=== PATIENT | female | born 1945 | race Caucasian/White ===

== ENCOUNTER 2017-05-18 14:33 | Emergency (ER) | payer MEDICARE, BC ==
[~2017-05-18] VITALS: Ht 162.6 cm; Wt 106.8 kg
[~2017-05-18 14:33] MED LIST: ABUTEROL INH; ADVAIR DISK2 IN; ALEGRA PO; ALENDRONATE70 MG PO; CALCIUM600 M1 PO; GLIPIZIDE10 M2 PO; HYDROXYZ HCL25 MG PO; JANUMET XR1 TA1; JANUMET XR1 TA1 PO; JANUMET1 TAB PO; LIPITOR10 MG PO; MOVE FREE; MULTI 501; ONE TOUCH ULTRA 100; PREDNISONE10 MG PO; SINGULAIR PO; SOLU-MEDROL125 MG IM; TRIAMCINOLON0.11 EX; ZANTAC150 M1 PO; ZOFRAN4 MG/TAB PO
[2017-05-18 15:35] LABS: HEMATOCRIT 43.3 % (37.0-47.0); HEMOGLOBIN 14.3 g/dl (12.0-16.0); IMMATURE GRANULOCYTES 0.1 % (0.0-1.0); MEAN CELL VOLUME 89.3 fL CALC (80.0-100.0); MEAN CORPUSCULAR HGB 29.5 pG CALC (26.0-32.0); NEUT# 4.2 thou/uL (2.00-7.15); RED BLOOD COUNT 4.85 mill/uL (4.20-5.60); RED CELL DISTRI WIDTH 13.6 % (11.5-15.5)
[2017-05-18 15:42] LABS: ALBUMIN 4.1 g/dL (3.2-5.0); ALKALINE PHOSPHATASE 99 u/l (38-126); ANION GAP 17 (6-22 (CALC)); BILIRUBIN, TOTAL 0.6 mg/dL (0.0-1.4); BUN 18 mg/dL (8-23); BUN/CREATININE RATIO 21 (12-20 (CALC)); CALCIUM 9.8 mg/dL (8.4-10.2); CARBON DIOXIDE 27 mmol/l (22-30); CHLORIDE 102 mmol/l (95-108); CREATININE 0.9 mg/dL (0.5-1.0); GFR > 60 ML/MIN (>=60 (CALC)); GFR FOR AFR.AMER. > 60 ML/MIN (>=60 (CALC)); GLUCOSE 152 mg/dL (82-115); POTASSIUM 4.8 mmol/l (3.5-5.1); SGOT/AST 28 u/l (9-36); SGPT/ALT 49 u/l (11-66); SODIUM 141 mmol/l (137-146); TOTAL PROTEIN 7.3 g/dL (6.3-8.2)
[2017-05-18 15:54] LABS: MYOGLOBIN 29 ng/mL (0 - 62)
[2017-05-18] MEDS ORDERED: ZITHROMAX250 MG PO (16:13)
[2017-05-18] MEDS ORDERED: MEDDOSEPAK PO (16:13)
[2017-05-18] MEDS ORDERED: ALBUTEROL SUL0.083 % IN (16:13)
[2017-05-18] MEDS ORDERED: LOSARTAN POTASS50 MG PO (16:19)
[2017-05-18] MEDS ORDERED: ASPIRIN81 MG PO (16:20)
[2017-05-18] MEDS ORDERED: B-6100 MG PO (16:20)
[2017-05-18] MEDS ORDERED: CLARITIN-D1 TA2 PO (16:21)
[2017-05-18] MEDS ORDERED: COQ10200 MG PO (16:22)
[2017-05-18] MEDS ORDERED: MULTI VIT PO (16:22)
[2017-05-18 16:30] VITALS: BP 148/66
== END 2017-05-18 16:30 | disposition home or self-care (01) ==
LOC: ED 14:33
PROVIDERS: Emergency Medicine
DX: J45.901 Unspecified asthma with (acute) exacerbation (principal); I10 Essential (primary) hypertension; E11.9 Type 2 diabetes mellitus without complications; R06.02 Shortness of breath

== ENCOUNTER 2018-04-11 19:06 | Emergency (ER) | payer MEDICARE, BC ==
[~2018-04-11] VITALS: Ht 162.6 cm; Wt 122.0 kg
[~2018-04-11 19:06] MED LIST changes: +ALBUTEROL SUL0.083 % IN; +ASPIRIN81 MG PO; +B-6100 MG PO; +CLARITIN-D1 TA2 PO; +COQ10200 MG PO; +LOSARTAN POTASS50 MG PO; +MEDDOSEPAK PO; +MULTI VIT PO; +ZITHROMAX250 MG PO
[2018-04-11 20:40] VITALS: BP 135/60
== END 2018-04-11 20:40 | disposition home or self-care (01) ==
LOC: ED 19:06
DX: S93.401A Sprain of unspecified ligament of right ankle, initial encounter (principal); S93.601A Unspecified sprain of right foot, initial encounter; E11.9 Type 2 diabetes mellitus without complications; J45.909 Unspecified asthma, uncomplicated; W18.2XXA Fall in (into) shower or empty bathtub, initial encounter; Y93.E1 Activity, personal bathing and showering; Y92.002 Bathroom of unspecified non-institutional (private) residence as the place of occurrence of the external cause

== ENCOUNTER 2018-09-18 08:28 | Outpatient (RCR) | payer MEDICARE, BC ==
[~2018-09-18 08:28] MED LIST changes: +LANTUS100 UNIT/M
[2018-10-07] MEDS ORDERED: CLOPIDOGREL75 MG PO (16:36)
== END 2018-09-18 09:35 | disposition still patient (30) ==
LOC: CR 08:28
PROVIDERS: ATTEND Internal Medicine
DX: I25.119 Atherosclerotic heart disease of native coronary artery with unspecified angina pectoris (principal); Z95.818 Presence of other cardiac implants and grafts

== ENCOUNTER 2020-02-02 09:27 | Observation (INO) | payer MEDICARE, BC ==
[~2020-02-02] VITALS: Ht 162.6 cm; Wt 121.0 kg
[~2020-02-02 09:27] MED LIST changes: +CLOPIDOGREL75 MG PO
[2020-02-02 10:18] LABS: HEMATOCRIT 45.1 % (37.0-47.0); HEMOGLOBIN 14.7 g/dl (12.0-16.0); IMMATURE GRANULOCYTES 0.1 % (0.0-5.0); MEAN CELL VOLUME 90.9 fL CALC (80.0-100.0); MEAN CORPUSCULAR HGB 29.6 pG CALC (26.0-32.0); MEAN CORPUSCULAR HGB CONC 32.6 g/dL CAL (32.0-36.0); NEUT# 3.52 thou/uL (2.00-7.15); RED BLOOD COUNT 4.96 mill/uL (4.20-5.60); RED CELL DISTRI WIDTH 12.7 % (11.5-15.5)
[2020-02-02 10:27] LABS: ALBUMIN 4.2 g/dL (3.2-5.0); ALKALINE PHOSPHATASE 107 u/l (38-126); ANION GAP 11 (6-22 (CALC)); BILIRUBIN, TOTAL 0.7 mg/dL (0.0-1.4); BUN 17 mg/dL (8-23); BUN/CREATININE RATIO 21 (12-20 (CALC)); CARBON DIOXIDE 27 mmol/l (22-30); CHLORIDE 101 mmol/l (95-108); CREATININE 0.8 mg/dL (0.5-1.0); GFR > 60 ML/MIN (>=60 (CALC)); GFR FOR AFR.AMER. > 60 ML/MIN (>=60 (CALC)); POTASSIUM 4.1 mmol/l (3.5-5.1); SGOT/AST 36 u/l (9-36); SODIUM 134 mmol/l (137-146)
[2020-02-02] MEDS ORDERED: ALENDRONATE SOD70 MG PO (10:50)
[2020-02-02] MEDS ORDERED: OZEMPIC SC (10:53)
[2020-02-02] MEDS ORDERED: MOVE FREE JOINT1 TAB (10:54)
[2020-02-02] MEDS ORDERED: B121000 MCG PO (10:54)
[2020-02-02 11:05] LABS: PROTHROMBIN TIME 10.1 SECONDS (9.0-12.5)
[2020-02-02 12:15] LABS: URINE BILIRUBIN - DIPSTICK NEGATIVE (NEGATIVE); URINE BLOOD DIPSTICK TRACE-INTACT (NEGATIVE); URINE COLOR YELLOW; URINE GLUCOSE - DIPSTICK >=1000 mg/dL (NEGATIVE); URINE KETONE NEGATIVE (NEGATIVE); URINE LEUK ESTERASE NEGATIVE (NEGATIVE); URINE NITRITE - DIPSTICK NEGATIVE (Negative); URINE PROTEIN - DIPSTICK NEGATIVE (NEG-TRACE); URINE UROBILINOGEN - DIPSTICK 0.2 E.U./dL (0.2)
[2020-02-02 15:00] VITALS: BP 149/69
[2020-02-02 19:12] VITALS: BP 149/89
[2020-02-03 03:45] VITALS: BP 159/71
[2020-02-03 05:01] LABS: HEMATOCRIT 43.5 % (37.0-47.0); IMMATURE GRANULOCYTES 0.3 % (0.0-5.0); MEAN CELL VOLUME 91.2 fL CALC (80.0-100.0); MEAN CORPUSCULAR HGB 29.4 pG CALC (26.0-32.0); MEAN CORPUSCULAR HGB CONC 32.2 g/dL CAL (32.0-36.0); NEUT# 3.77 thou/uL (2.00-7.15); RED BLOOD COUNT 4.77 mill/uL (4.20-5.60); RED CELL DISTRI WIDTH 12.5 % (11.5-15.5)
[2020-02-03 05:25] LABS: ALBUMIN 3.9 g/dL (3.2-5.0); ALKALINE PHOSPHATASE 85 u/l (38-126); ANION GAP 10 (6-22 (CALC)); BILIRUBIN, TOTAL 0.6 mg/dL (0.0-1.4); BUN 18 mg/dL (8-23); BUN/CREATININE RATIO 19 (12-20 (CALC)); CARBON DIOXIDE 26 mmol/l (22-30); CHLORIDE 101 mmol/l (95-108); CREATININE 0.9 mg/dL (0.5-1.0); GFR > 60 ML/MIN (>=60 (CALC)); GFR FOR AFR.AMER. > 60 ML/MIN (>=60 (CALC)); SGOT/AST 25 u/l (9-36); SODIUM 134 mmol/l (137-146); TOTAL PROTEIN 6.3 g/dL (6.3-8.2)
[2020-02-03 07:59] VITALS: BP 116/63
[2020-02-03 10:15] LABS: CHOLESTEROL HDL RATIO 4.2 (<4.4 (CALC))
[2020-02-03 15:00] VITALS: BP 139/86
[2020-02-03 19:40] VITALS: BP 152/69
[2020-02-03 22:02] VITALS: BP 146/82
[2020-02-04 03:45] VITALS: BP 127/64
[2020-02-04 08:01] VITALS: BP 150/55
[2020-02-04 08:10] VITALS: BP 150/55
== END 2020-02-04 12:20 | disposition home or self-care (01) ==
LOC: ED 09:27 → ED-I 11:20 → ED 12:17 → MS2 12:18
PROVIDERS: Nurse Practitioner Family; Student in an Organized Health Care Education/Training Program; ADMIT Internal Medicine; ATTEND Internal Medicine
DX: I63.89 Other cerebral infarction (principal); R47.81 Slurred speech; R29.700 NIHSS score 0; I10 Essential (primary) hypertension; E11.9 Type 2 diabetes mellitus without complications; E78.5 Hyperlipidemia, unspecified; J45.909 Unspecified asthma, uncomplicated; I25.10 Atherosclerotic heart disease of native coronary artery without angina pectoris; Z79.4 Long term (current) use of insulin; Z79.02 Long term (current) use of antithrombotics/antiplatelets; Z79.82 Long term (current) use of aspirin; Z20.828 Contact with and (suspected) exposure to other viral communicable diseases
CPT/HCPCS: A9579; G0378

== ENCOUNTER 2020-02-21 18:24 | Emergency (ER) | payer MEDICARE, BC ==
[~2020-02-21] VITALS: Ht 162.6 cm; Wt 108.0 kg
[~2020-02-21 18:24] MED LIST changes: +ALENDRONATE SOD70 MG PO; +B121000 MCG PO; +MOVE FREE JOINT1 TAB; +OZEMPIC SC
[2020-02-21 19:31] VITALS: BP 136/53
[2020-02-21] MEDS ORDERED: TRAMADOL HCL50 MG PO (20:01)
[2020-02-21] MEDS ORDERED: VOLTAREN - GENE75 MG PO (20:01)
== END 2020-02-21 20:45 | disposition home or self-care (01) ==
LOC: ED 18:24
PROC: 2W3RX1Z Immobilization of Left Lower Leg using Splint (ICD-10-PCS; principal; 2020-02-21)
DX: S82.55XA Nondisplaced fracture of medial malleolus of left tibia, initial encounter for closed fracture (principal); S80.11XA Contusion of right lower leg, initial encounter; E11.9 Type 2 diabetes mellitus without complications; V86.19XA Passenger of other special all-terrain or other off-road motor vehicle injured in traffic accident, initial encounter; Z79.4 Long term (current) use of insulin

== ENCOUNTER 2020-02-25 09:09 | Emergency (ER) | payer MEDICARE, BC ==
[~2020-02-25] VITALS: Ht 162.6 cm; Wt 108.0 kg
[~2020-02-25 09:09] MED LIST changes: +TRAMADOL HCL50 MG PO; +VOLTAREN - GENE75 MG PO
[2020-02-25 10:33] LABS: PROTHROMBIN TIME 10.2 SECONDS (9.0-12.5)
[2020-02-25 10:39] LABS: ALBUMIN 4.2 g/dL (3.2-5.0); ALKALINE PHOSPHATASE 76 u/l (38-126); ANION GAP 12 (6-22 (CALC)); BILIRUBIN, TOTAL 0.8 mg/dL (0.0-1.4); BUN 30 mg/dL (8-23); BUN/CREATININE RATIO 28 (12-20 (CALC)); CARBON DIOXIDE 29 mmol/l (22-30); CHLORIDE 96 mmol/l (95-108); CREATININE 1.1 mg/dL (0.5-1.0); GFR 48 ML/MIN (>=60 (CALC)); GFR FOR AFR.AMER. 59 ML/MIN (>=60 (CALC)); LIPASE 32 u/l (23-300); POTASSIUM 4.2 mmol/l (3.5-5.1); SGOT/AST 36 u/l (9-36); SODIUM 133 mmol/l (137-146); TOTAL PROTEIN 7.4 g/dL (6.3-8.2)
[2020-02-25 10:44] LABS: HEMATOCRIT 42.7 % (37.0-47.0); HEMOGLOBIN 13.8 g/dl (12.0-16.0); IMMATURE GRANULOCYTES 0.2 % (0.0-5.0); MEAN CELL VOLUME 90.9 fL CALC (80.0-100.0); MEAN CORPUSCULAR HGB 29.4 pG CALC (26.0-32.0); MEAN CORPUSCULAR HGB CONC 32.3 g/dL CAL (32.0-36.0); NEUT# 6.24 thou/uL (2.00-7.15); RED BLOOD COUNT 4.7 mill/uL (4.20-5.60); RED CELL DISTRI WIDTH 12.5 % (11.5-15.5)
[2020-02-25 10:49] LABS: URINE BILIRUBIN - DIPSTICK NEGATIVE (NEGATIVE); URINE BLOOD DIPSTICK TRACE-INTACT (NEGATIVE); URINE COLOR YELLOW; URINE GLUCOSE - DIPSTICK NEGATIVE (NEGATIVE); URINE KETONE 15 mg/dL (NEGATIVE); URINE LEUK ESTERASE NEGATIVE (NEGATIVE); URINE NITRITE - DIPSTICK NEGATIVE (Negative); URINE PROTEIN - DIPSTICK NEGATIVE (NEG-TRACE); URINE SPECIFIC GRAVITY >=1.030; URINE UROBILINOGEN - DIPSTICK 0.2 E.U./dL (0.2)
[2020-02-25] MEDS ORDERED: ZOFRAN4 MG/TAB PO (11:27)
[2020-02-25 12:20] VITALS: BP 142/65
== END 2020-02-25 12:20 | disposition home or self-care (01) ==
LOC: ED 09:09
PROVIDERS: Student in an Organized Health Care Education/Training Program
DX: K29.70 Gastritis, unspecified, without bleeding (principal); N17.9 Acute kidney failure, unspecified; E86.0 Dehydration; E11.9 Type 2 diabetes mellitus without complications; S82.892D Other fracture of left lower leg, subsequent encounter for closed fracture with routine healing; X58.XXXD Exposure to other specified factors, subsequent encounter; Z86.73 Personal history of transient ischemic attack (TIA), and cerebral infarction without residual deficits; Z79.4 Long term (current) use of insulin

== ENCOUNTER 2022-11-21 18:18 | Observation (INO) | payer MEDICARE ==
[~2022-11-21] VITALS: Ht 162.6 cm; Wt 100.0 kg
[2022-11-21] VITALS (11 sets, daily range): BP systolic 111–145; BP diastolic 66–97
--- NOTE | 2022-11-21 19:01 | NUR ---
PT TRANSFERRED WITH W/C. PIVOTED TO STRETCHER/
[2022-11-21 19:07] LABS: BASO% 0.6 % (0-3); EOS% 2.2 % (0-8); HEMATOCRIT 44.6 % (37.0-47.0); HEMOGLOBIN 14.4 g/dl (12.0-16.0); IMMATURE GRANULOCYTES 0.1 % (0.0-5.0); LYMPH% 25.8 % (15-41); MEAN CELL VOLUME 90.8 fL CALC (80.0-100.0); MEAN CORPUSCULAR HGB 29.3 pG CALC (26.0-32.0); MEAN CORPUSCULAR HGB CONC 32.3 g/dL CAL (32.0-36.0); MONO% 7.6 % (2-13); NEUT# 4.58 thou/uL (2.00-7.15); NEUT% 63.7 % (42-76); RED BLOOD COUNT 4.91 mill/uL (4.20-5.60); RED CELL DISTRI WIDTH 12.6 % (11.5-15.5)
[2022-11-21 19:23] LABS: ALKALINE PHOSPHATASE 81 u/l (38-126); BILIRUBIN, TOTAL 0.6 mg/dL (0.02-1.3); BUN 13 mg/dL (8-23); BUN/CREATININE RATIO 14 (12-20 (CALC)); CHLORIDE 101 mmol/l (95-108); GFR FOR AFR.AMER. > 60 ML/MIN (>=60 (CALC)); GFR OTHER RACES 54 ML/MIN (>=60 (CALC)); POTASSIUM 4.2 mmol/l (3.5-5.1); PROTHROMBIN TIME 10.4 SECONDS (9.0-12.5); SGOT/AST 42 u/l (9-36); SODIUM 134 mmol/l (137-146); TOTAL PROTEIN 7.1 g/dL (6.3-8.2)
[2022-11-21 19:28] LABS: ANION GAP 12 (6-22 (CALC)); CARBON DIOXIDE 25 mmol/l (22-30)
--- NOTE | 2022-11-21 23:30 | NUR ---
RECEIVED REPORT OVER THE PHONE FROM ER NURSE. PT BROUGHT UP FROM ER VIA STR @[id number]. PT WAS ABLE TO AMBULATE FROM STR INTO BATHROOM, VOIDED WITH NO COMPLICATIONS AND THEN AMBULATED INTO BED. GAIT STEADY. PT IS A/OX3, ON ROOM AIR, DENIES ANY PAIN AT THIS TIME. SKIN IS INTACT. IV SITE APPEARS HEALTHY. ASSESSMENT COMPLETED. EDUCATED PT ON PLAN OF CARE FOR TONIGHT. CALL LIGHT WITHIN REACH AND SAFETY PRECAUTIONS IN PLACE.
--- NOTE | 2022-11-22 00:32 | NUR ---
AMMENDMENT: ADMISSIONS ASSESSMENT+NURSING INTERVENTIONS SHOWS OCCURED @1999 ON 11/21/22 CORRECTION: ADMISSIONS ASSESSMENT+NURSING INTERVENTIONS OCCURRED @[id number]
--- NOTE | 2022-11-22 04:00 | NUR ---
ASSISTED PT WITH AMBUILATING TO RESTROOM WITH IV POLE. PT ABLE TO VOID WITH NO COMPLICATIONS. AMBULATED BACK INTO BED. DENIES ANY PAIN AT THIS TIME. PT IS A/OX3. CALL LIGHT WITHIN REACH AND SAFETY PRECAUTIONS IN PLACE.
[2022-11-22 04:41] VITALS: BP 128/68
[2022-11-22 05:02] LABS: BASO% 0.6 % (0-3); EOS% 3.8 % (0-8); HEMATOCRIT 42.6 % (37.0-47.0); IMMATURE GRANULOCYTES 0.2 % (0.0-5.0); LYMPH% 32.3 % (15-41); MEAN CORPUSCULAR HGB 29.9 pG CALC (26.0-32.0); MEAN CORPUSCULAR HGB CONC 32.9 g/dL CAL (32.0-36.0); MONO% 8.2 % (2-13); NEUT# 3.49 thou/uL (2.00-7.15); NEUT% 54.9 % (42-76); RED BLOOD COUNT 4.68 mill/uL (4.20-5.60); RED CELL DISTRI WIDTH 12.8 % (11.5-15.5)
[2022-11-22 05:13] LABS: ALBUMIN 3.6 g/dL (3.2-5.0); ALKALINE PHOSPHATASE 69 u/l (38-126); ANION GAP 10 (6-22 (CALC)); BILIRUBIN, TOTAL 0.4 mg/dL (0.02-1.3); BUN 13 mg/dL (8-23); BUN/CREATININE RATIO 14 (12-20 (CALC)); CARBON DIOXIDE 25 mmol/l (22-30); CHLORIDE 104 mmol/l (95-108); CREATININE 0.9 mg/dL (0.5-1.0); GFR FOR AFR.AMER. > 60 ML/MIN (>=60 (CALC)); GFR OTHER RACES > 60 ML/MIN (>=60 (CALC)); SGOT/AST 37 u/l (9-36); SODIUM 136 mmol/l (137-146); TOTAL PROTEIN 6.4 g/dL (6.3-8.2)
[2022-11-22 06:50] VITALS: BP 140/69
--- NOTE | 2022-11-22 08:00 | NUR ---
PT ALERT AND ORIENTED X3.ABLE TO MAKE NEEDS KNOWN.RESPIRATIONS EVEN,UNLABORED.NO C/O PAIN.22G LEFT HAND REMOVED PER PROCESS STRIP[employer].DAUGHTER AT BEDSIDE.MED REC COMPLETED AND MD MADE AWARE.SAFETY PRECAUTIONS IN PLACE.CALL LIGHT WITHIN REACH.
[2022-11-22] MEDS ORDERED: TRESIBA FL100 UNIT/M SC (09:36)
--- NOTE | 2022-11-22 09:57 | NUR ---
PT DAUGHTER STATES THAT PT IS VERY ANXIOUS ABOUT HAVING AN MRI.
[2022-11-22 10:00] LABS: URINE BLOOD DIPSTICK TRACE-INTACT (NEGATIVE); URINE COLOR YELLOW; URINE GLUCOSE - DIPSTICK NEGATIVE (NEGATIVE); URINE KETONE NEGATIVE (NEGATIVE); URINE LEUK ESTERASE NEGATIVE (NEGATIVE); URINE PH 6.5 (4.5-8.0); URINE PROTEIN - DIPSTICK NEGATIVE (NEG-TRACE); URINE UROBILINOGEN - DIPSTICK 0.2 E.U./dL (0.2)
[2022-11-22 10:01] LABS: TSH, 3RD GENERATION 3.49 uIU/mL (0.47 - 4.68)
[2022-11-22 10:01] LABS: URINE NITRITE - DIPSTICK NEGATIVE (Negative)
[2022-11-22 10:15] VITALS: BP 142/71
[2022-11-22 11:48] LABS: URINE BILIRUBIN - DIPSTICK NEGATIVE (NEGATIVE)
--- NOTE | 2022-11-22 12:59 | NUR ---
SPOKE WITH MARIBEL IN MRI, STATES MRI WILL BE DONE "SOMETIME BEFORE THREE", INFORMATION ENDORSED TO PT/FAMILY AND NURSE.
[2022-11-22 15:54] VITALS: BP 141/75
--- NOTE | 2022-11-22 18:04 | NUR ---
Discharge instructions given.iv discontinued and tele monitor removed from pt Patient verbalizes understanding of same. Discharged in stable condition via Wheelchair to Home with family. All belongings sent with pt.
== END 2022-11-22 17:25 | disposition home or self-care (01) ==
LOC: ED 18:18 → MS2 22:11
PROVIDERS: Family Medicine; Nurse Practitioner Family; ADMIT Internal Medicine; ATTEND Internal Medicine
DX: G93.41 Metabolic encephalopathy (principal); I10 Essential (primary) hypertension; E11.9 Type 2 diabetes mellitus without complications; E78.5 Hyperlipidemia, unspecified; J45.909 Unspecified asthma, uncomplicated; Z86.73 Personal history of transient ischemic attack (TIA), and cerebral infarction without residual deficits; Z79.4 Long term (current) use of insulin
CPT/HCPCS: Q9967

== ENCOUNTER 2024-08-26 11:49 | Emergency (ER) | payer MEDICARE ==
[~2024-08-26] VITALS: Ht 162.6 cm; Wt 81.6 kg
[2024-08-26] VITALS (7 sets, daily range): BP systolic 116–131; BP diastolic 62–77
[~2024-08-26 11:49] MED LIST changes: +TRESIBA FL100 UNIT/M SC
[2024-08-26] MEDS ORDERED: CEPHALEXIN500 M1 PO (12:55)
== END 2024-08-26 14:26 | disposition home or self-care (01) ==
LOC: ED 11:49
DX: L03.211 Cellulitis of face (principal); L01.00 Impetigo, unspecified; I10 Essential (primary) hypertension; E11.9 Type 2 diabetes mellitus without complications; J45.909 Unspecified asthma, uncomplicated; Z86.73 Personal history of transient ischemic attack (TIA), and cerebral infarction without residual deficits; Z79.4 Long term (current) use of insulin; Z79.85 Long-term (current) use of injectable non-insulin antidiabetic drugs